=== PATIENT | female | born 1975 | race American Indian/Alaskan Native ===

== ENCOUNTER 2021-06-18 00:57 | Emergency (ER) | payer MEDICAID, OTHER ==
[2021-06-18] MEDS ORDERED: ONDANSETRON 4 MG/2 ML INJ IV ONE (01:10)
[2021-06-18] MEDS ORDERED: SODIUM CHLORIDE 0.9% 1000 ML 1,000 ML IV ONE (01:10)
[2021-06-18] MEDS ORDERED: fentaNYL 250 MCG/5 ML INJ IV ONE (01:11)
--- NOTE | 2021-06-18 01:14 | Emergency Department Report ---
ED Abdominal Pain HPI - General Stated Complaint: ABD PAIN Time Seen by Provider: 06/18/21 01:09 Source: patient, EMS - History of Present Illness Initial Comments: Patient is 46 years old female with history of hypertension, pancreatitis and endometrial cancer. Patient presented to the ER via EMS accompanied by police from a local penit[place]iary for evaluation of abdominal pain, diffuse with radiation to the back. Patient denied any fever or chills. Patient is actively vomiting in the emergency room. She denied any diarrhea. MD Complaint: abdominal pain -: Last night Location: diffuse Radiation: back Migration to: no migration Severity scale (0 -10): 6 - Related Data Home Medications Medication Instructions Recorded Confirmed Last Taken Methadone [Dolophine] 30 mg PO DAILY 03/27/16 03/27/16 Unknown Previous Rx's Medication Instructions Recorded Last Taken Type levoFLOXacin [Levaquin TAB] 500 mg PO Q24HR #3 tablet 03/27/16 Unknown Rx Allergies Allergy/AdvReac Type Severity Reaction Status Date / Time Penicillins Allergy Itching Verified 12/29/12 18:39 tramadol HCl [From Ultra] Allergy Hives Verified 03/15/15 20:51 ED Review of Systems ROS: Stated complaint: ABD PAIN Other details as noted in HPI Comment: All other systems reviewed and negative Constitutional: denies: chills, fever Respiratory: denies: cough, shortness of breath, SOB with exertion, SOB at rest Cardiovascular: denies: chest pain, palpitations Gastrointestinal: abdominal pain, nausea, vomiting. denies: diarrhea, constipation, hematemesis, hematochezia Musculoskeletal: denies: back pain Neurological: denies: headache, weakness, numbness, paresthesias, confusion ED Past Medical Hx - Past Medical History Hx Hypertension: Yes (during ) Additional medical history: UTERINE PROLAPSE - Surgical History Hx Cholecystectomy: Yes Hx Appendectomy: Yes Additional Surgical History: appendectomy /tubal ligation 2008 - Social History Smoking Status: Current Every Day Smoker Substance Use Type: None - Medications Home Medications: Home Medications Medication Instructions Recorded Confirmed Last Taken Type Methadone [Dolophine] 30 mg PO DAILY 03/27/16 03/27/16 Unknown History levoFLOXacin [Levaquin TAB] 500 mg PO Q24HR #3 tablet 03/27/16 Unknown Rx ED Physical Exam - General General appearance: alert, other (Actively vomiting) - Head Head exam: Present: atraumatic, normocephalic, normal inspection - Eye Eye exam: Present: normal appearance - ENT ENT exam: Present: normal exam - Neck Neck exam: Present: normal inspection - Respiratory Respiratory exam: Present: normal lung sounds bilaterally - Cardiovascular Cardiovascular Exam: Present: regular rate, normal rhythm, normal heart sounds - GI/Abdominal GI/Abdominal exam: Present: soft, normal bowel sounds. Absent: distended, tenderness, guarding, rebound, rigid, organomegaly, mass, bruit, pulsatile mass, hernia - Extremities Exam Extremities exam: Present: normal inspection, full ROM, normal capillary refill. Absent: tenderness, pedal edema, joint swelling, calf tenderness - Back Exam Back exam: Present: normal inspection, full ROM. Absent: CVA tenderness (R), CVA tenderness (L) - Neurological Exam Neurological exam: Present: alert, oriented X3, CN II-XII intact - Psychiatric Psychiatric exam: Present: normal mood - Skin Skin exam: Present: warm, intact, normal color ED Course Vital Signs 06/18/21 06/18/21 01:49 03:55 Temperature 99.2 F Pulse Rate 89 97 H Respiratory 15 Rate Blood Pressure 214/133 Blood Pressure 203/128 [Right] O2 Sat by Pulse 99 Oximetry ED Medical Decision Making - Lab Data Result diagrams: 06/18/21 01:19 06/18/21 01:19 - Radiology Data Radiology results: report reviewed - Medical Decision Making Patient is 46 years old female with history of hypertension, pancreatitis and endometrial cancer. Patient presented to the ER via EMS accompanied by police from a local penitentiary for evaluation of abdominal pain, diffuse with radiation to the back. Patient denied any fever or chills. Patient is actively vomiting in the emergency room. She denied any diarrhea. Patient received multiple medication for pain and antiemetic. Patient received fentanyl, Zofran, Reglan, Benadryl and Protonix. Labs reviewed and is unremarkable. CT abdomen pelvis with IV contrast showed no acute abnormalities. Patient symptoms most likely gastritis however patient strongly advised to follow-up with primary care physician for further management. Patient received also hydralazine for elevated blood pressure. Critical care attestation.: If time is entered above; I have spent that time in minutes in the direct care of this critically ill patient, excluding procedure time. ED Disposition Clinical Impression: Acute abdominal pain, Intractable nausea and vomiting, Malignant hypertension Disposition: HOME / SELF CARE / HOMELESS Is pt being admited?: No Condition: Stable Instructions: Hypertension (ED), Abdominal Pain, Adult, [id number], Nausea and Vomiting, Adult, [id number], Hypertension, Adult Referrals: PRIMARY CARE,MD [Primary Care Provider] - 3-5 Days
[2021-06-18] MEDS ORDERED: fentaNYL 100 MCG/2 ML INJ IV ONE ×2 (02:00→03:37)
[2021-06-18 02:10] LABS: Hematocrit 45.8 % (30.3-42.9); Hemoglobin 15.3 gm/dl (10.1-14.3); Mean Corpuscular HGB Conc 33 % (30-34); Mean Corpuscular Volume 92 fl (79-97); Platelet Count 369 K/mm3 (140-440); Red Blood Count 4.97 M/mm3 (3.65-5.03); Red Cell Distribution Width 13.1 % (13.2-15.2)
[2021-06-18 02:16] LABS: Alanine Aminotransferase 17 units/L (7-56); Albumin 4.7 g/dL (3.9-5); BUN/Creatinine Ratio 13; Blood Urea Nitrogen 10 mg/dL (7-17); Calcium 9.5 mg/dL (8.4-10.2); Hemolysis Index 14
[2021-06-18 02:30] LABS: Bilirubin,Direct < 0.2 mg/dL (0-0.2)
[2021-06-18] MEDS ORDERED: METOCLOPRAMIDE 10 MG/2 ML INJ IV ONE (02:34)
[2021-06-18 02:48] LABS: Bilirubin,Urine NEG (Negative); Blood,Urine MOD (Negative); Color,Urine Yellow (Yellow); Mucus,Urine 3+ /HPF; Urobilinogen,Urine < 2.0 mg/dL (<2.0)
[2021-06-18 03:13] LABS: Basophils % (Manual) 0 % (0.0-1.8); Eosinophils % (Manual) 0 % (0.0-4.3); Monocytes % (Manual) 0 % (0.0-7.3); Total Cells Counted 100
[2021-06-18 03:14] LABS: Platelet Estimate Consistent w Auto; RBC Morphology Normal
[2021-06-18] MEDS ORDERED: hydrALAZINE 20 MG/1 ML INJ IV ONE (03:37)
--- NOTE | 2021-06-18 03:55 | Cat Scan Report ---
CT ABDOMEN AND PELVIS WITH CONTRAST INDICATION / CLINICAL INFORMATION: Pt complains of diffuse abdominal pain. History pancreatitis and e ndometrial cancer. TECHNIQUE: Axial CT images were obtained through the abdomen and pelvis after IV contrast. All CT sc ans at this location are performed using CT dose reduction for ALARA by means of automated exposure c ontrol. COMPARISON: CT abdomen and pelvis 03/15/2015. FINDINGS: LOWER CHEST: No significant abnormality of the imaged chest. LIVER: No significant abnormality. Subcentimeter foci of hypoattenuation within the left hepatic lobe are too small to further characterize most likely reflect cysts or hemangiomas. GALLBLADDER: Cholecystectomy. BILE DUCTS: Mildly prominent intra and extrahepatic biliary ducts are demonstrated, nonspecific findi ng in the setting of previous cholecystectomy. SPLEEN: No significant abnormality. PANCREAS: No significant abnormality. ADRENALS: A new 1.8 cm left adrenal nodule demonstrated indeterminate for adenoma. RIGHT KIDNEY / URETER: No significant abnormality. LEFT KIDNEY / URETER: No significant abnormality. STOMACH / DUODENUM / SMALL BOWEL: No significant abnormality. COLON: No significant abnormality. APPENDIX: Absent PERITONEUM: Trace amount of dependent free fluid within the pelvis. LYMPH NODES: No significant adenopathy. AORTA / ARTERIES: No significant abnormality. IVC / VEINS: Incidental note made of circumaortic left main renal vein. URINARY BLADDER: No significant abnormality. REPRODUCTIVE ORGANS: Uterus and ovaries demonstrate no significant abnormalities. ADDITIONAL ABDOMINAL/PELVIC FINDINGS: None. SKELETAL SYSTEM: No significant abnormality. IMPRESSION: 1. Interval development of 1.8 cm left adrenal nodule indeterminate for adenoma. 2. Stable subcentimeter foci of hypoattenuation within the liver likely reflective of small cysts or hemangiomas. Lesions are too small to further characterize. 3. No acute process demonstrated within the abdomen or pelvis. Signer Name: Rio Gomez II, MD Signed: 06/18/2021 3:51 AM Workstation Name: [id number]
[2021-06-18] MEDS ORDERED: PANTOPRAZOLE 40 MG INJ IV ONE (04:00)
[2021-06-18] MEDS ORDERED: diphenhydrAMINE 50 MG/ML VIAL IV ONE (04:11)
[2021-06-18 04:55] VITALS: BP 186/124
== END 2021-06-18 05:01 | disposition home or self-care (01) ==
LOC: ED 00:57
DX: R10.9 Unspecified abdominal pain (principal); R11.10 Vomiting, unspecified; I10 Essential (primary) hypertension; Z90.49 Acquired absence of other specified parts of digestive tract; F17.200 Nicotine dependence, unspecified, uncomplicated; Z88.0 Allergy status to penicillin; Z91.09 Other allergy status, other than to drugs and biological substances; Z98.890 Other specified postprocedural states
CPT/HCPCS: 36415; 74177; 80048; 80076; 81001; 83690; 84703; 85007; 85025; 96361; 96374; 96375; 96376; 99284; C9113; J0360; J1200; J2405; J2765; J3010; J7030; Q9967; Q0162

== ENCOUNTER 2021-09-02 21:30 | Emergency (ER) | payer SELFPAY ==
[2021-09-03] MEDS ORDERED: SODIUM CHLORIDE 0.9% 1000 ML 1,000 ML IV ONE (00:43)
--- NOTE | 2021-09-03 01:01 | Emergency Department Report ---
History of Present Illness - General Chief Complaint: Overdose Stated Complaint: OVERDOSE Time Seen by Provider: 09/03/21 00:25 Source: patient Mode of arrival: Stretcher Limitations: No Limitations - History of Present Illness Initial Comments: 46 yo F with h/o illicit drug use/abuse brought in by EMS with overdose on heroin. According to patient she lost her methadone in bag for the last few days and asked for help on the street but was given heroin. Pt's daughter who called the EMS found her mother unresponsive around 8 PM. She says she must have taken the heroin between 4-8 PM tonight. Pt was given narcan by the EMS before she regain consciousness. Pt's daughter says she was breathing slowly but was not conscious when she found her. Pt denies any suicide or homicidal ideation. Pt is more alert right now and only c/o abdominal cramping. No other modifying or associated factors reported. MD Complaint: accidental overdose - Related Data Home Medications Medication Instructions Recorded Confirmed Last Taken Methadone [Dolophine] 30 mg PO DAILY 03/27/16 03/27/16 Unknown Previous Rx's Medication Instructions Recorded Last Taken Type levoFLOXacin [Levaquin TAB] 500 mg PO Q24HR #3 tablet 03/27/16 Unknown Rx Dicyclomine [Bentyl] 20 mg PO QID #20 tablet 06/18/21 Unknown Rx Ondansetron [Zofran Odt] 4 mg PO Q8HR PRN #14 tab.rapdis 06/18/21 Unknown Rx amLODIPine [Norvasc] 5 mg PO DAILY #30 tab 06/18/21 Unknown Rx hydroCHLOROthiazide [HCTZ] 25 mg PO QDAY #30 tablet 06/18/21 Unknown Rx Allergies Allergy/AdvReac Type Severity Reaction Status Date / Time Penicillins Allergy Itching Verified 12/29/12 18:39 tramadol HCl [From Ultram] Allergy Hives Verified 03/15/15 20:51 ED Review of Systems ROS: Stated complaint: OVERDOSE Other details as noted in HPI Comment: All other systems reviewed and negative Gastrointestinal: abdominal pain (cramping ) ED Past Medical Hx - Past Medical History Previous Medical History?: Yes Hx Hypertension: Yes (during ) Additional medical history: UTERINE PROLAPSE. Recreational Drug user - Surgical History Past Surgical History?: Yes Hx Cholecystectomy: Yes Hx Appendectomy: Yes Additional Surgical History: appendectomy / gallbladder /tubal ligation 2008 - Social History Smoking Status: Current Every Day Smoker Substance Use Type: Cocaine, Marijuana - Medications Home Medications: Home Medications Medication Instructions Recorded Confirmed Last Taken Type Methadone [Dolophine] 30 mg PO DAILY 03/27/16 03/27/16 Unknown History levoFLOXacin [Levaquin TAB] 500 mg PO Q24HR #3 tablet 03/27/16 Unknown Rx Dicyclomine [Bentyl] 20 mg PO QID #20 tablet 06/18/21 Unknown Rx Ondansetron [Zofran Odt] 4 mg PO Q8HR PRN #14 tab.rapdis 06/18/21 Unknown Rx amLODIPine [Norvasc] 5 mg PO DAILY #30 tab 06/18/21 Unknown Rx hydroCHLOROthiazide [HCTZ] 25 mg PO QDAY #30 tablet 06/18/21 Unknown Rx ED Physical Exam - General Limitations: No Limitations General appearance: alert, in no apparent distress - Head Head exam: Present: atraumatic, normal inspection - Eye Eye exam: Present: normal appearance Pupils: Present: normal accommodation - ENT ENT exam: Present: normal exam, normal orophraynx, mucous membranes moist - Neck Neck exam: Present: normal inspection, full ROM. Absent: tenderness - Respiratory Respiratory exam: Present: normal lung sounds bilaterally. Absent: respiratory distress, accessory muscle use - Cardiovascular Cardiovascular Exam: Present: regular rate, normal rhythm, normal heart sounds - GI/Abdominal GI/Abdominal exam: Present: soft, normal bowel sounds. Absent: distended, tenderness - Extremities Exam Extremities exam: Present: normal inspection, normal capillary refill. Absent: tenderness - Back Exam Back exam: Present: normal inspection. Absent: tenderness - Neurological Exam Neurological exam: Present: alert, oriented X3 - Psychiatric Psychiatric exam: Present: normal affect, normal mood ED Course Vital Signs 09/02/21 09/03/21 21:38 06:52 Temperature 98 F Pulse Rate 109 H 77 Respiratory 18 16 Rate Blood Pressure 138/96 Blood Pressure 158/72 [Right] O2 Sat by Pulse 99 100 Oximetry - Reevaluation(s) Reevaluation #1: 09/03/21 00:59 pt here with likely overdose on heroin -- patient is feeling better now -- only c/o abdominal pain-- will go ahead and get routine labs including UDS and CBC,, CMP and UA for any infectious process-- or electrolytes abnormality-- given ivf ns in the meantime-- 09/03/21 06:02 Noted with unremarkable chemistry reports and slightly elevated white count with no left shift which likely reactive--patient reports feeling much better after hydration so we will discharge patient home to close follow-up with primary doctor or warning to return to emergency room if symptoms worsen ED Medical Decision Making - Lab Data Result diagrams: 09/03/21 00:58 09/03/21 05:03 Critical care attestation.: If time is entered above; I have spent that time in minutes in the direct care of this critically ill patient, excluding procedure time. ED Disposition Clinical Impression: Accidental heroin overdose Qualifiers: Encounter type: initial encounter Qualified Code(s): T40.1X1A - Poisoning by heroin, accidental (unintentional), initial encounter Disposition: HOME / SELF CARE / HOMELESS Is pt being admited?: No Does the pt Need Aspirin: No Condition: Stable Instructions: Accidental Drug Poisoning, Adult, Preventing Poisoning, Adult Additional Instructions: Increase your daily fluid to help your hydration Call your primary doctor in the next 3 to 5 days for progress Please do not hesitate to call or return to emergency if your symptoms worsen Referrals: TARAH SIMMONS MD [Primary Care Provider] - 3-5 Days Time of Disposition: 06:03
[2021-09-03 01:14] LABS: Hematocrit 38.1 % (30.3-42.9); Hemoglobin 13.1 gm/dl (10.1-14.3); Mean Corpuscular HGB Conc 34 % (30-34); Mean Corpuscular Volume 92 fl (79-97); Platelet Count 326 K/mm3 (140-440); Red Blood Count 4.14 M/mm3 (3.65-5.03); Red Cell Distribution Width 14.3 % (13.2-15.2)
[2021-09-03 01:26] LABS: INR 0.97 (0.87-1.13)
[2021-09-03 04:54] LABS: Basophils % (Manual) 0 % (0.0-1.8); Eosinophils % (Manual) 0 % (0.0-4.3); Total Cells Counted 100
[2021-09-03 04:55] LABS: Platelet Estimate Consistent w Auto; RBC Morphology Normal
[2021-09-03 05:56] LABS: Alanine Aminotransferase 13 units/L (7-56); BUN/Creatinine Ratio 15; Blood Urea Nitrogen 12 mg/dL (7-17); Calcium 8.8 mg/dL (8.4-10.2); Hemolysis Index 16
[2021-09-03 06:53] VITALS: BP 158/72
--- NOTE | 2021-09-04 12:11 | Electrocardiograph Report ---
[facility] Test Date: 2021-09-03 Test Time: 01:33:15 Pat Name: МАРИНА MARTINES Department: Room: Gender: F Business Specialist: FRANCINE : 1975 Requested By: LUISITO HOYT Order Number: [id number] Reading MD: Gerardo Lozano Measurements Intervals [place] Rate: 94 P: 70 RI: 124 QRS: 36 QRSD: 92 T: 11 QT: 393 QTc: 491 Interpretive Statements Sinus rhythm No previous ECG available for comparison Electronically Signed On 09-04-2021 12:11:21 EDT by Gerardo Lozano
== END 2021-09-03 06:53 | disposition home or self-care (01) ==
LOC: ED 21:30
DX: T40.1X1A Poisoning by heroin, accidental (unintentional), initial encounter (principal); I10 Essential (primary) hypertension; F17.200 Nicotine dependence, unspecified, uncomplicated; F12.90 Cannabis use, unspecified, uncomplicated; F14.90 Cocaine use, unspecified, uncomplicated; R79.1 Abnormal coagulation profile; Z90.49 Acquired absence of other specified parts of digestive tract; Z79.899 Other long term (current) drug therapy; Z88.0 Allergy status to penicillin; Z88.6 Allergy status to analgesic agent; Y92.89 Other specified places as the place of occurrence of the external cause
CPT/HCPCS: 80053; 85025; 85610; 93005; 96360; 99284; J7030